=== PATIENT | male | born 1945 | race Caucasian/White ===

== ENCOUNTER 2018-03-18 17:22 | Emergency (ER) | payer MEDICARE, BC ==
[2018-03-18] MEDS ORDERED: Bacitracin Oint 1 GM U/D Packet TOP ONE (18:32)
[2018-03-18] MEDS ORDERED: Rabies Immune Globulin PF 150 Units/ML 10 ML SDV IM ONE (18:33)
[2018-03-18] MEDS ORDERED: Rabies Vaccine (Avian) 2.5 Unit Inj Kit IM ONE (18:33)
[2018-03-18] MEDS ORDERED: Amoxicillin/Clavulanate K 875-125 MG Tab PO ONE (18:35)
--- NOTE | 2018-03-18 18:40 | EDM.PDOC ---
ED HPI GENERAL MEDICAL PROBLEM - General Chief Complaint: Bite:Animal, Insect Stated Complaint: CAT BITE LT HAND Time Seen by Provider: 03/18/18 18:14 - History of Present Illness INITIAL COMMENTS - FREE TEXT/NARRATIVE: HISTORY AND PHYSICAL: History of present illness: The patient is a 72-year-old male who presents after being mildly bitten and scratched by a stray cat at approximately 3 PM today. The back door was open and the cat wandered in and he has no knowledge of this cat nor has it been captured. The cat superficially bit him on the dorsal aspect of his right wrist and then scratched him clots at the proximal forearm but there are no other injuries. The patient says that he is up-to-date on his tetanus shot and there is no discomfort in the area but he was concerned about rabies as the cat is unknown. Patient has no pain to the area and has no neurosensory changes in the hand or arm and no swelling is noted. He said that the superficial laceration was bleeding a lot which is why put a Band-Aid on it but it has since stopped bleeding. He has no systemic complaints and was in his usual state of good health prior to these events Review of systems: As per history of present illness and below otherwise all systems reviewed and negative. Past medical history: As per history of present illness and as reviewed below otherwise noncontributory. Surgical history: As per history of present illness and as reviewed below otherwise noncontributory. Social history: No reported history of drug or alcohol abuse. Family history: As per history of present illness and as reviewed below otherwise noncontributory. Physical exam: General: Well-developed well-nourished man who is nontoxic and speaking clearly. HEENT: Atraumatic, normocephalic, negative for conjunctival pallor or scleral icterus, mucous membranes moist, throat clear, neck supple, nontender, trachea midline. Lungs: Clear to auscultation, breath sounds equal bilaterally, chest nontender. Heart: S1S2, regular rate and rhythm no overt murmurs Abdomen: Deferred Pelvis: Deferred Genitourinary: Deferred. Rectal: Deferred. Extremities: Atraumatic with full range of motion of all extremities with the exception of the right dorsal wrist and forearm where there are wounds seen. At the dorsal wrist near the scaphoid area there is a 2 cm laceration of which half is superficial and half as to the subcutaneous tissue. The base can be seen and no foreign bodies are appreciated nor is there any soft tissue swelling ecchymosis or tenderness nor is there any bleeding. There are several superficial puncture taylor on the proximal forearm area where the cat scratched him but these are tiny and there is no erythema and no drainage no compartment swelling or tenderness and no bleeding. There is no erythema at any of these wounds. The patient has full range of motion of the extremity and the hand and pulses are intact. There are no other injuries per the patient. The legs are, negative for cords or calf pain. Neurovascular unremarkable. Neuro: Awake, alert, oriented. Cranial nerves II through XII unremarkable. Cerebellum unremarkable. Motor and sensory unremarkable throughout. Exam nonfocal. Diagnostics: [] Therapeutics: RIG rabies vaccine Augmentin wound care I will give the patient a prescription for subsequent rabies vaccines and will advise him on where he needs to go for these vaccinations. He will get Augmentin for home which she is advised she has to continue to take and to do local wound care. We will give referral to Dr. Soler or hand specialist for further care and advised him on reasons to return to the ED Impression: Cat bite and scratches to right wrist and forearm stable Definitive disposition and diagnosis as appropriate pending reevaluation and review of above. Right Wrist Pain Score (Numeric/FACES): 3 - Related Data Allergies Allergy/AdvReac Type Severity Reaction Status Date / Time azithromycin [From Zithromax] Allergy Other Verified 03/18/18 17:55 Home Meds: Home Meds . [Unable to Verify Home Med List] 03/18/18 [History] Past Medical History Cardiovascular History: Reports: Hypertension Social & Family History - Tobacco Use Smoking Status *Q: Never Smoker Second Hand Smoke Exposure: No - Caffeine Use Caffeine Use: Reports: Other - Recreational Drug Use Recreational Drug Use: No ED ROS GENERAL - Review of Systems Review Of Systems: ROS reveals no pertinent complaints other than HPI. ED EXAM, ANIMAL BITE - Physical Exam Exam: See Below (See dictation) Course - Vital Signs Last Recorded V/S: Last Vital Signs Temp 37.2 C 03/18/18 17:55 Pulse 71 03/18/18 17:55 Resp 18 03/18/18 17:55 BP 184/88 H 03/18/18 17:55 Pulse Ox 94 L 03/18/18 17:55 - Orders/Labs/Meds Orders: Active Orders 24 hr Category Date Time Status Communication Order [RC] STAT Care 03/18/18 18:33 Ordered Vaccines to be Administered [RC] PER UNIT ROUTINE Care 03/18/18 18:34 Ordered Amoxicillin/Clavulanate K [Augmentin 875 MG/125 MG] Med 03/18/18 18:35 Once 1 tab PO ONETIME ONE Bacitracin [Bacitracin Oint 1 GM] Med 03/18/18 18:32 Once 1 dose TOP ONETIME ONE Rabies Immune Globulin PF [HyperRAB S/D] Med 03/18/18 18:33 Once 1,520 unit IM ONETIME ONE Rabies Vaccine (Trevor) [RabAvert] Med 03/18/18 18:33 Once 2.5 unit IM .ONCE ONE Departure - Departure Time of Disposition: 18:40 Disposition: Home, Self-Care 01 Clinical Impression: Cat bite of wrist Qualifiers: Encounter type: initial encounter Laterality: right Qualified Code(s): S61.551A - Open bite of right wrist, initial encounter; W55.01XA - Bitten by cat , initial encounter - Discharge Information Referrals: PCP,None [Primary Care Provider] - Additional Instructions: The following information is given to patients seen in the emergency department who are being discharged to home. This information is to outline your options for follow-up care. We provide all patients seen in our emergency department with a follow-up referral. The need for follow-up, as well as the timing and circumstances, are variable depending upon the specifics of your emergency department visit. If you don't have a primary care physician on staff, we will provide you with a referral. We always advise you to contact your personal physician following an emergency department visit to inform them of the circumstance of the visit and for follow-up with them and/or the need for any referrals to a consulting specialist. The emergency department will also refer you to a specialist when appropriate. This referral assures that you have the opportunity for followup care with a specialist. All of these measure are taken in an effort to provide you with optimal care, which includes your followup. Under all circumstances we always encourage you to contact your private physician who remains a resource for coordinating your care. When calling for followup care, please make the office aware that this follow-up is from your recent emergency room visit. If for any reason you are refused follow-up, please contact the [facility] emergency department at and ask to speak to the emergency department charge nurse. [facility] Primary care- Internal Medicine and [facility] [address] [place] [id number] [facility] Specialty clinic-Plastic Surgery and Hand Surgery Professional Building [address] [place] [address] [phone] Please go for your repeat vaccinations as scheduled and prescribed. He will for these vaccinations at our outpatient unit for check in at the registration desk as directed by nursing. Please take your antibiotics as directed until they're finished. Keep the wounds clean and dry with mild soap and water and bacitracin or Neosporin. Please call and follow-up with our hand specialist if this wound seems to be getting more red swelling or changing or return to ER as needed and as we discussed. The wound Has a high susceptibility for infection and it is important to take care of this and monitor it closely. - My Orders Last 24 Hours: My Active Orders 03/18/18 18:32 Bacitracin [Bacitracin Oint 1 GM] 1 dose TOP ONETIME ONE 03/18/18 18:33 Communication Order [RC] STAT Rabies Immune Globulin PF [HyperRAB S/D] 1,520 unit IM ONETIME ONE Rabies Vaccine (Trevor) [RabAvert] 2.5 unit IM .ONCE ONE 03/18/18 18:34 Vaccines to be Administered [RC] PER UNIT ROUTINE 03/18/18 18:35 Amoxicillin/Clavulanate K [Augmentin 875 MG/125 MG] 1 tab PO ONETIME ONE - Assessment/Plan Last 24 Hours: My Active Orders 03/18/18 18:32 Bacitracin [Bacitracin Oint 1 GM] 1 dose TOP ONETIME ONE 03/18/18 18:33 Communication Order [RC] STAT Rabies Immune Globulin PF [HyperRAB S/D] 1,520 unit IM ONETIME ONE Rabies Vaccine (Trevor) [RabAvert] 2.5 unit IM .ONCE ONE 03/18/18 18:34 Vaccines to be Administered [RC] PER UNIT ROUTINE 03/18/18 18:35 Amoxicillin/Clavulanate K [Augmentin 875 MG/125 MG] 1 tab PO ONETIME ONE
[2018-03-19 04:39] VITALS: BP 147/91
== END 2018-03-18 21:12 | disposition home or self-care (01) ==
LOC: MW.ED 17:22
DX: S61.551A Open bite of right wrist, initial encounter (principal); S50.811A Abrasion of right forearm, initial encounter; I10 Essential (primary) hypertension; W55.03XA Scratched by cat, initial encounter; W55.01XA Bitten by cat, initial encounter
CPT/HCPCS: 90375; 90675; 96372; 99283; A9270